=== PATIENT | female | born 1990 | race Caucasian/White ===

== ENCOUNTER 2023-05-02 10:06 | Inpatient (IN) | payer BC ==
[2023-04-29 10:26] LABS: Hematocrit 37.1 % (34.9-44.5); Hemoglobin 12.5 g/dL (12.0-15.5); Platelet Count 274 10x3/uL (150-450)
[2023-04-29 10:54] LABS: HBSAg Index 0.16 S/CO (0-0.99); Hep B Surf Ag Non-Reactive S/CO (NonReactive); Syphilis Antibody Nonreactive (Nonreactive); Syphilis Antibody Index 0.09 S/CO (<1.00 Non-Reactive)
[~2023-05-02 10:06] MED LIST: Oxytocin 10 UNITS/ML VIAL ONE
[2023-05-02] MEDS ORDERED: Tranexamic Acid 1,000 MG/10 ML VIAL IVP PRN (10:59)
[2023-05-02] MEDS ORDERED: Bicitra 30 ML UDCUP PO PRN (10:59)
[2023-05-02] MEDS ORDERED: Diphenoxylate HCl/Atropine Tablet PO PRN ×2 (10:59)
[2023-05-02] MEDS ORDERED: Carboprost 250 MCG/ML AMP IM PRN (10:59)
[2023-05-02] MEDS ORDERED: CEFAZOLIN 2 GM in Sodium Chloride 0.9% 100 ML IVPB SCH (10:59)
[2023-05-02] MEDS ORDERED: NS w/ Oxytocin 30 units 500 ML IV SCH (10:59)
[2023-05-02] MEDS ORDERED: Lactated Ringer's 1,000 ML IV SCH (10:59)
[2023-05-02] MEDS ORDERED: Ondansetron PF 4 MG/2 ML Vial IVP PRN ×2 (10:59→11:49)
[2023-05-02] MEDS ORDERED: Misoprostol 200 MCG TAB PR PRN (10:59)
[2023-05-02] MEDS ORDERED: hydrALAZINE 20 MG/ML VIAL SLOW IVP PRN ×2 (10:59→13:27)
[2023-05-02] MEDS ORDERED: Promethazine HCl 25 MG/ML VIAL IM PRN ×2 (10:59→11:49)
[2023-05-02 11:03] VITALS: BMI 48.2
[2023-05-02] MEDS ORDERED: Lidocaine 1% (PF) 30 ML VIAL ONE (11:03)
[2023-05-02] MEDS: Famotidine/PF 20 mg/2ml Vial SLOW IVP PRN ×2 (11:32→11:46)
[2023-05-02] MEDS ORDERED: Ondansetron HCl/PF 4 MG/2 ML Vial IVP PRN (11:49)
[2023-05-02] MEDS ORDERED: Ketorolac Tromethamine 30 MG/ML VIAL IVP PRN (11:49)
[2023-05-02] MEDS ORDERED: L&D-HYDROmorphone 0.5 MG/0.5 ML SYRINGE SLOW IVP PRN (11:49)
[2023-05-02] MEDS ORDERED: diphenhydrAMINE 50 MG/ML VIAL IVP PRN (11:49)
[2023-05-02] MEDS ORDERED: Naloxone HCl 0.4 mg/ml Vial IV PRN (11:49)
[2023-05-02] MEDS ORDERED: Meperidine HCl/PF 25 MG/ML VIAL SLOW IVP PRN (11:49)
[2023-05-02] MEDS ORDERED: Moisturizing Cream (Eucerin) 113 GM JAR TOP PRN (11:49)
[2023-05-02] MEDS ORDERED: Fentanyl 50 MCG/1 ML VIAL SLOW IVP PRN (11:49)
[2023-05-02] MEDS ORDERED: Promethazine HCl 25 MG SUPP PR PRN (11:49)
[2023-05-02] MEDS ORDERED: Naloxone HCl 0.4 mg/ml Vial IVP PRN ×2 (11:49)
[2023-05-02] MEDS ORDERED: Communication Order-Pharmacy FS SCH (12:00)
[2023-05-02] MEDS ORDERED: Ketorolac Tromethamine 30 MG/ML VIAL IVP SCH (12:00)
[2023-05-02] MEDS ORDERED: fentaNYL 50 mcg/mL 1 mL Vial ONE (12:06)
[2023-05-02] MEDS ORDERED: Morphine PF 10 MG/10 ML VIAL ONE (12:06)
[2023-05-02] MEDS ORDERED: Dexamethasone 4 mg/ml Vial ONE (12:40)
[2023-05-02] MEDS ORDERED: Ondansetron PF 4 MG/2 ML Vial ONE (12:40)
[2023-05-02] MEDS ORDERED: Lanolin Ointment 7 GM TUBE TOP PRN (13:27)
[2023-05-02] MEDS ORDERED: Bisacodyl 10 MG SUPP PR PRN (13:27)
[2023-05-02] MEDS ORDERED: Acetaminophen 325 MG TAB PO PRN (13:27)
[2023-05-02] MEDS ORDERED: Boostrix 0.5 ML (Tdap) VIAL (>/=7 yrs of age) IM ONE (13:27)
[2023-05-02] MEDS ORDERED: Simethicone Chewable 80 MG TAB PO PRN (13:27)
[2023-05-02] MEDS ORDERED: Ibuprofen 800 MG TAB PO SCH (14:00)
[2023-05-02] MEDS ORDERED: Ketorolac Tromethamine 30 MG/ML VIAL ONE (14:39)
[2023-05-02] MEDS ORDERED: NS w/ Oxytocin 30 units 500 ML ONE (16:53)
[2023-05-02] MEDS ORDERED: NS w/ Oxytocin 30 units 500 ML IVPB SCH (17:15)
[2023-05-02] MEDS: Ketorolac Tromethamine 30 MG/ML VIAL IVP PRN (21:36)
[2023-05-03] MEDS: Ketorolac Tromethamine 30 MG/ML VIAL IVP PRN ×2 (04:06→09:08)
[2023-05-03 05:25] LABS: Hematocrit 32.1 % (34.9-44.5); Hemoglobin 10.5 g/dL (12.0-15.5); Mean Corpuscular HGB CONC 32.7 g/dL (32.0-36.0); Mean Corpuscular Hemoglobin 28.8 pg (27.0-33.0); Mean Corpuscular Volume 88.2 fl (81.6-98.3); Mean Platelet Volume 10.5 fl (7.4-10.4); Platelet Count 261 10x3/uL (150-450); RBC Distribution Width 14.7 % (11.5-14.5); Red Blood Cell (RBC) Count 3.64 10x6/uL (3.90-5.03); White Blood Cell (WBC) Count 9.1 10x3/uL (3.5-10.5)
[2023-05-03] MEDS: Amlodipine 10 MG TAB PO SCH (09:08)
[2023-05-03] MEDS: Hydrochlorothiazide 25 MG TAB PO SCH (09:08)
[2023-05-03] MEDS: Prenatal Vitamin 1 TAB PO SCH (09:08)
[2023-05-03] MEDS: Sertraline 25 MG TAB PO SCH (09:08)
[2023-05-03] MEDS: Ibuprofen 800 MG TAB PO SCH ×2 (15:07→22:48)
[2023-05-03] MEDS: HYDROcodone/Acetaminophen 5/325 mg Tablet PO PRN ×3 (16:05→21:19)
[2023-05-03] MEDS: Docusate 100 MG CAP PO SCH (21:14)
[2023-05-04] MEDS: HYDROcodone/Acetaminophen 5/325 mg Tablet PO PRN ×3 (02:16→10:24)
[2023-05-04] MEDS: Ibuprofen 800 MG TAB PO SCH (06:11)
[2023-05-04 07:40] VITALS: BP 129/66; TEMP 98.7
[2023-05-04] MEDS: Prenatal Vitamin 1 TAB PO SCH (08:30)
[2023-05-04] MEDS: Sertraline 25 MG TAB PO SCH (08:30)
[2023-05-04] MEDS: Hydrochlorothiazide 25 MG TAB PO SCH (08:30)
[2023-05-04] MEDS: Docusate 100 MG CAP PO SCH (08:30)
[2023-05-04] MEDS: Amlodipine 10 MG TAB PO SCH (08:30)
== END 2023-05-04 12:45 | disposition home or self-care (01) | DRG 788 ==
LOC: CSHLD 10:06 → CSHPP 15:25
PROVIDERS: ADMIT Obstetrics & Gynecology; ATTEND Obstetrics & Gynecology
PROC: 10D00Z1 Extraction of Products of Conception, Low, Open Approach (ICD-10-PCS; principal; 2023-05-02)
PROC: 3E0334Z Introduction of Serum, Toxoid and Vaccine into Peripheral Vein, Percutaneous Approach (ICD-10-PCS; 2023-05-02)
PROC: 3E033VJ Introduction of Other Hormone into Peripheral Vein, Percutaneous Approach (ICD-10-PCS; 2023-05-02)
DX: O10.92 Unspecified pre-existing hypertension complicating childbirth (principal); O34.211 Maternal care for low transverse scar from previous cesarean delivery; O99.214 Obesity complicating childbirth; O99.52 Diseases of the respiratory system complicating childbirth; J45.909 Unspecified asthma, uncomplicated; O26.893 Other specified pregnancy related conditions, third trimester; Z67.11 Type A blood, Rh negative; Z3A.39 39 weeks gestation of pregnancy; Z37.0 Single live birth
CPT/HCPCS: 36415; 51702; 85014; 85018; 85027; 85049; 85461; 86780; 86850; 86900; 86901; 87340; 90384; 96372; J1100; J1885; J2274; J2405; J2590; J3010; J3490; J7120; S0028